=== PATIENT | female | born 1965 | race Caucasian/White ===

== ENCOUNTER 2023-07-17 07:33 | Outpatient (CLI) | payer OTHER, SELFPAY ==
--- NOTE | ~2023-07-17 | MM_ITS ---
EXAMINATION: MM screening lasha BI w ivis HISTORY: Screening mammogram TECHNIQUE: Craniocaudal and mediolateral oblique 3-D tomosynthesis images were obtained and synthetic 2-D images were generated. CAD analysis was submitted and interpreted. COMPARISON: No prior mammogram is available for comparison at this institution. BREAST PARENCHYMAL COMPOSITION: There are scattered areas of fibroglandular density. FINDINGS: There is no evidence of suspicious mass, calcification, or architectural distortion to sugg est malignancy in either breast. IMPRESSION: 1. No mammographic evidence of malignancy. 2. Recommend routine screening mammography in one year. BI-RADS Category 1: Negative Reviewed, dictated and finalized at location A.
== END 2023-07-17 07:34 | disposition home or self-care (01) ==
PROVIDERS: Visit Provider Obstetrics & Gynecology
DX: Z12.31 Encounter for screening mammogram for malignant neoplasm of breast (principal)
CPT/HCPCS: 77063; 77067

== ENCOUNTER 2023-07-19 00:59 | Day surgery (SDC) | payer OTHER, SELFPAY ==
[2023-07-07 10:23] VITALS: BMI 25.0
[2023-07-19 08:13] VITALS: BP 123/88; PULSE 73; RESP 16; TEMP 36.6; O2SAT 97
[2023-07-19] MEDS: LACTATED RINGERS 1,000 ML 150 ML IV CONT (08:15)
--- NOTE | 2023-07-19 09:03 | P.PNAN_ITS ---
Anes - Initial Pre Proc Eval Procedure: Operation Date: 07/19/23 09:30 Proposed Procedures p Screening Colonoscopy - Tim Green MD Date/Time: 07/19/23 09:03 Surgeon: Tim Green MD Pre Op Diagnosis: neoplasm screening Patient Data Age: 58 Gender: F Height: 1.63 m Weight: 66.3 kg Last Vital Signs Temp 98 F 07/19/23 08:13 Pulse 73 07/19/23 08:13 Resp 16 07/19/23 08:13 BP 123/88 07/19/23 08:13 Pulse Ox 97 07/19/23 08:13 O2 Del Method Room Air 07/19/23 08:13 Allergies Allergy/AdvReac Type Severity Reaction Status Date / Time No Known Allergies Allergy Unverified 07/19/23 08:12 Home Medications Medication Instructions Recorded Confirmed Type diphenhydramine 25 0.5 tablet PO HS 07/07/23 07/19/23 History mg-acetaminophen 500 mg tablet (Tylenol PM Extra Strength) melatonin 10 mg tablet 10 mg PO HS 07/07/23 07/19/23 History Patient hx anesthesia problems: none Family hx anesthesia problems: none Results Review: All pre-operative results and documents have been reviewed as part of the pre- operative evaluation. [facility] Social History Social History Smoking status: Never smoker Alcohol intake: current Drinks per week: 7 Alcohol use details: WINE Substance use: never Substance use type: does not use Living arrangements: with family Spiritual care concerns: No Anes - Eval Final PreProcedure Day of Procedure 07/19/23 09:03 Patient weight: normal Heart: regular rate and rhythm Lungs: clear to auscultation Airway: Mallampati scale class II Neurological: alert and oriented Last oral intake: >/= 8 hours ASA classification: I Emergent: no Anesthetic plan: proceed Anesthesia type and monitoring: general GIVS and standard monitoring Results Review: All pre-operative results and documents have been reviewed as part of the pre- operative evaluation. Informed Consent: The patient's anesthetic plan and its attendant risks and benefits were discussed with the patient/family/POA. Questions were solicited and answers provided to the satisfaction of the patient/family/POA.
--- NOTE | 2023-07-19 09:10 | P.HP_ITS ---
History of Present Illness History of Present Illness Consent: Risks, benefits, and alternatives have been discussed and questions answered. Patient agrees to proceed with procedure. Chief complaint: neoplasm screening Narrative: Sonal Kingston is a 58 year old female here for first screening colonoscopy Review of Systems Constitutional: Constitutional: Denies headache(s) and Denies weakness Eyes: Eyes: Denies blurry vision ENT: Reports Normal hearing present, Denies headache(s) and Denies neck pain Cardiovascular: Cardiovascular: Denies chest pain and Denies dyspnea Respiratory: Respiratory: Denies dyspnea Gastrointestinal: Gastrointestinal: Reports no additional gastrointestinal complaints Genitourinary: Genitourinary: Denies dysuria Musculoskeletal: Musculoskeletal: Denies neck pain Integumentary/Breasts: Skin/Breast: Denies dry skin Neurologic: Reports Normal hearing present, Denies headache(s) and Denies weakness Psychiatric: Psychiatric: Denies anxiety Endocrine: Endocrine: Denies change in body appearance Hematologic/Lymphatic: Hematologic/Lymphatic: Denies easy bleeding Allergic/Immunologic: Allergic/Immunologic: Denies urticaria [facility] Past Medical History Medical History (Updated 07/19/23 @ 09:11 by Tim Green MD) Colon cancer screening Social History Social History Smoking status: Never smoker Alcohol intake: current Drinks per week: 7 Alcohol use details: WINE Substance use: never Substance use type: does not use Living arrangements: with family Spiritual care concerns: No Meds Home Medications and Allergies Home Medications Medication Instructions Recorded Confirmed Type diphenhydramine 25 0.5 tablet PO HS 07/07/23 07/19/23 History mg-acetaminophen 500 mg tablet (Tylenol PM Extra Strength) melatonin 10 mg tablet 10 mg PO 07/07/23 07/19/23 History Allergies Allergy/AdvReac Type Severity Reaction Status Date / Time No Known Allergies Allergy Unverified 07/19/23 08:12 Vital Signs Vital Signs - 24 hr 07/19/23 08:13 Temperature 98 F Pulse Rate 73 Respiratory Rate 16 Blood Pressure 123/88 Pulse Oximetry 97 Oxygen Delivery Room Air Exam Const: General: comfortable and no acute distress HENMT: Face/Nose/Sinus: Normal nares present Eyes: General: appearance normal, both eyes and all related structures Neck: Neck: no JVD Resp: Auscultation: clear to auscultation bilaterally Cardio: Rate: regular rate Rhythm: regular rhythm GI: Inspection: non-distended GI Palp: Yes Soft to palpation Skin: General skin exam: normal color Neuro: General: gait normal Speech: normal speech Extrem: General: normal to inspection Psych: Mental Status: mental status grossly normal Assessment and Plan Assessment and plan (1) Colon cancer screening: Code(s): Z12.11 - Encounter for screening for malignant neoplasm of colon Status: Acute Assessment and Plan: colonoscopy
[2023-07-19 09:53] VITALS: BP 105/66; PULSE 75; RESP 23; O2SAT 99
[2023-07-19 10:03] VITALS: BP 104/62; PULSE 62; RESP 20; O2SAT 100
[2023-07-19 10:13] VITALS: BP 129/81; PULSE 60; RESP 21; O2SAT 100
== END 2023-07-19 10:16 | disposition home or self-care (01) ==
PROVIDERS: Visit Provider Internal Medicine Gastroenterology
PROC: 0DJD8ZZ Inspection of Lower Intestinal Tract, Via Natural or Artificial Opening Endoscopic (ICD-10-PCS; CPT 45378; principal; 2023-07-19 09:30)
DX: Z12.11 Encounter for screening for malignant neoplasm of colon (principal); K57.30 Diverticulosis of large intestine without perforation or abscess without bleeding; K64.8 Other hemorrhoids
CPT/HCPCS: 45378; J2001; J2704; J7120

== ENCOUNTER 2024-08-09 15:48 | Outpatient (CLI) | payer BC, SELFPAY ==
--- NOTE | ~2024-08-09 | MM_ITS ---
EXAMINATION: MM screening lasha BI w ivis HISTORY: Screening TECHNIQUE: Craniocaudal and mediolateral oblique 3-D tomosynthesis images were obtained and synthetic 2-D images were generated. CAD analysis was submitted and interpreted. COMPARISON: 07/17/2023 BREAST PARENCHYMAL COMPOSITION: Not dense: There are scattered areas of fibroglandular density. FINDINGS: There are no suspicious masses, calcifications or architectural distortion in either breast to suggest malignancy. No significant interval change. IMPRESSION: 1. No mammographic evidence of malignancy. 2. Recommend routine screening mammography in one year. BI-RADS Category 1: Negative Reviewed, dictated and finalized at location B.
== END 2024-08-09 15:49 | disposition home or self-care (01) ==
LOC: ANHIMG 15:51
PROVIDERS: Visit Provider Obstetrics & Gynecology
DX: Z12.31 Encounter for screening mammogram for malignant neoplasm of breast (principal)
CPT/HCPCS: 77063; 77067

== ENCOUNTER 2025-03-29 07:00 | Outpatient (NON) | payer BC, SELFPAY ==
--- NOTE | 2025-03-29 13:13 | S_PTH ---
PATIENT: Sonal Kingston LOC: ANHLAB #:[id number] AGE/SX: 59/F ROOM: RE03/29/[address]: Sean Anne MD : 1965 BED: DIS: 03/29/2025 SPEC #: [id number] RECD: 03/30/25 07:49 STATUS: KIMBERLYMelissa REQ #: [id number] SWAPNA: 03/29/25 13:[address]: Sean Anne DEPT: [facility] Surgical RECD BY: Jodie Kumar Tissues: A - Cyst B - Cyst Procedures: Hematoxylin and Eosin Stain Gross and Microscopic Level 4 Comments: @ Originally on account #[id number] Req #[id number]
--- OUTSIDE RECORDS SUMMARY | 2026-02-12 15:34 | XMS_ITS | Clinical Summary ---
Author Organization [facility] Address [address] [place] [address] Phone Care Team Providers Care Sort Line Worker Name Role Phone Samuel Barker MD Primary Care Provide r Allergies No known active allergies Medications melatonin 10 mg tablet Take 1 tablet (10 mg total) by mouth daily Active cholecalcifero l 25 mcg (1,000 unit) tablet Take 1 tablet (1,000 Units total) by mouth daily Active acetaminophen (TYLENOL) 325 mg tablet Take 2 tablets (650 mg total) by mouth every 6 (six) hours as needed for pain 1/2 TAB nightly 01/16/20 26 Discontinued Active Problems Problem Noted Date Diagnosed Date Mixed hyperlipidemia 01/15/2026 Assessment & Plan (01/15/2026 4:02 PM CDT): MIldly elevated LDL cholesterol HDL very elevated Strong family hx of CVD, father had CABG in 50's Trend Lipid panel annually Low threshold to start low-dose statin to modify cardiovascular risk Palpitations 01/17/2024 Assessment & Plan (01/17/2024 7:53 AM CDT): Two episodes of very symptomatic palpitations in fall of 2022, no significant recurrence. Episodes occurred at rest, no exertional component. No other associated symptoms. Discussed ongoing monitoring for symptom recurrence, monitoring HR on Apple Watch. She is comfortable deferring Holter/event monitor for now since symptoms have stopped. Discussed differential including arrhythmia, PAC/PVCs, anxiety, etc. Primary insomnia 01/17/2024 Assessment & Plan (04/03/2025 1:08 PM CDT): Stable w/ melatonin and Tylenol PM. Assessment & Plan (01/17/2024 7:53 AM CDT): Stable w/ melatonin and Tylenol PM. Encounter for preventive health examination 12/30 Assessment & Plan (01/15/2026 4:02 PM CDT): Discussed a healthy life style consisting of a diet which include 4-5 servings of fruits and vegetables a day, regular exercise consisting of at least 120-150 minutes of moderate intensity activity. Alcohol, if ingested, should be kept to no more than four servings a week. Discussed age-appropriate healthcare maintenance per USPTF guidelines Working as a health and physical education teacher To take meds Enjoys traveling in her free time Does drink wine, no other drug use or tobacco use Strong family history of cardiovascular disease Assessment & Plan (04/03/2025 1:08 PM CDT): General - HbA1c: 5.3% 12/2023 - Lipid panel: LDL 134 12/2023 - ASCVD score: Low risk - DEXA scan: Discuss at 66 Cancer - Colonoscopy: UTD 07/2023, repeat 07/2033 - Mammogram: UTD 08/2024, records requested - Pap: UTD 04/2023, repeat per Idea Worker Immunizations - Influenza: Recommended - Td/Tdap: UTD 11/2020, repeat 11/2030 - PCV20: Discuss at 65 - Shingles: Recommended - COVID: Recommended Orders: Vitamin D 25 hydroxy; Future Thyroid Function Piatt; Future Lipid panel; Future Comprehensive metabolic panel; Future CBC with auto differential; Future Hepatitis C antibody Blood; Future Hemoglobin A1c; Future Assessment & Plan (01/14/2024 12:30 PM CDT): General - HbA1c: Ordered - Lipid panel: Ordered - ASCVD score: Pending - DEXA scan: Discuss at 66 Cancer - Colonoscopy: UTD 07/2023, records requested - Mammogram: UTD 07/2023, records requested - Pap: UTD 04/2023, repeat per Idea Worker Immunizations - Influenza: Recommended - Td/Tdap: UTD 11/2020, repeat 11/2030 - PCV20: Discuss at 66 - Shingles: Recommended - COVID: Recommended Encounters Date Type Department Care Team Description 01/15/2026 2:45 PM CDT Office Visit [facility] Primary [facility] at [place] [id number] [place] [phone] Samuel Barker MD Encounter for preventive health examination (Primary Dx); Mixed hyperlipidemia from Last 3 Months Immunizations Immunization Administration Dates Next Due Influenza, Unspecified 01/14/2024(Deferred: [place] ent Refused) Tdap 11/05/2020 Family History Medical History Relation Name Comments Kidney failure Brother Alcohol abuse Father Father Depression Father Father Heart attack Father Father Bypass Hyperlipidemia Father Father Hypertension Father Father Parkinsonism Father Father Hypertension Mother Mother Stroke Sister Relation Name Status Comments Brother Father Father Mother Mother Sister Social History Tobacco Use Types Packs/Day Years Used Date Smoking Tobacco: Never Smokeless Tobacco: Never Tobacco Cessation:Counseling Given: Not Answered PHQ-2 Answer Date Recorded PHQ-2 Total Score (If total score is 3 or more points, staff should administer the PHQ-9) 0 01/15/2026 Comments No Sex and Gender Information Value Date Recorded Sex Assigned at Not on file Legal Sex Female 9:33 AM CDT Gender Identity Female 07/05/2025 8:50 PM CDT Sexual Orientation Straight 07/05/2025 8: 50 PM CDT Obstetrics History Para Term AB IAB SAB Ectopic Multiple Livin g Live Births 2 2 Date Outcome GA Total Labor Labor/2nd/3rd Weight Sex Type Anes PTL Tiffanie A1 A5 Name Clin Last Filed Vital Signs Vital Sign Reading Time Taken Comments Blood Pressure 120/74 01/15/2026 2:35 PM CDT Pulse 82 01/15/2026 2:35 PM CDT Temperature - - Respiratory Rate 16 01/14/2024 11:54 AM CDT Oxygen Saturation 95% 01/15/2026 2:35 PM CDT Inhaled Oxygen Concentration - - Weight 65.1 kg (143 lb 9.6 oz) 01/15/2026 2:35 P M CDT Height 162.6 cm (5' 4) 01/15/2026 2:35 PM CDT Body Mass Index 24.65 01/15/2026 2:35 PM CDT Plan of Treatment Health Maintenance Due Date Last Done Comments Zoster Vaccine (1 of 2) 2016 Influenza Vaccine (Season Ended) 2026 Breast Cancer Screening-Mammogram 07/09/2026 07/09/2025, 08/01/2024, 07/17/2023 Covid-19 Vaccine ( season) 2027 11/07/2022, 09/11/2021, 01/05/2021, Additional history exists Postponed from 07/02/2025 (Supply/Drug Shortage) Depression Screening 01/15/2027 01/15/2026, 04/03/2025, 01/14/2024 Regular Well Visit/Exam 18-64 01/15/2027 01/15/2026, 04/03/2025 Cervical Cancer Screening 04/21/2028 04/21/2023 DTaP/Tdap/Td Vaccine (2 - Td or Tdap) 11/05/2030 11/05/2020 Colon Cancer Screening-Colonoscopy 07/02/2033 07/02/2023 Hepatitis C Screening Completed 04/11/2025 Hepatitis B Screening Discontinued Pneumococcal vaccine <65 Aged Out No longer eligible based on patient's age to complete this topic Procedures Procedure Name Priority Date/Time Associated Diagnosis Comments SCREENING MAMMOGRAM BILATERAL W SUKH Schedule Routine, Read Routine (OP Routine) 07/09/2025 5:01 PM CDT Screening mammogram, encounter for HEPATITIS C ANTIBODY Routine 04/11/2025 8:03 AM CDT Encounter for preventive health examination Encounter for HCV screening test for low risk patient HM PAP SMEAR WITH HPV Routine 04/21/2023 from Last 3 Months or Most Recently Relevant to Health Maintenance Results * (ABNORMAL) Screening Mammogram Bilateral W Sukh (07/09/2025 5:01 PM CDT) Anatomical Region Laterality Modality Breast Bilateral Mammography Impressions 07/11/2025 10:42 AM CDT Left 1) Asymmetry: Left breast asymmetry in the upper region. Assessment: 0 - Incomplete. Diagnostic mammogram with possible ultrasound is recommended. Right No evidence of malignancy. OVERALL BI-RADS FINAL ASSESSMENT: 0 - Incomplete: Needs Additional Imaging Evaluation RECOMMENDATIONS: Recommend left breast diagnostic mammogram with possible ultrasound. Narrative 07/11/2025 10:42 AM CDT EXAMINATION: Screening Mammogram Bilateral W Sukh: 07/09/2025 COMPARISON: TECHNIQUE: Mammography was performed with 2D and digital breast tomosynthesis (DBT) images. CAD was utilized. BREAST PARENCHYMAL COMPOSITION: There are scattered areas of fibroglandular density. FINDINGS: Left 1) Asymmetry: There is an asymmetry seen in the upper region of the left breast. This finding needs additional imaging evaluation. Right There is no suspicious mass, calcification, or architectural distortion. us Self Screening Mammogram IMG MAMMO PROCEDURES Fi nal Result * Hepatitis C antibody Blood (04/11/2025 8:03 AM CDT) Hep C Ab NON-REACTI VE NON-REACT CELESTE [facility] Comment: HCV antibody was non-reactive. There is no laboratory evidence of HCV infection. In most cases, no further action is required. However, if recent HCV exposure is suspected, a test for HCV RNA (test code 57307) is suggested. For additional information please refer to http://education.[employer].VeriShow/faq/SLQ68j2 (This link is being provided for informational/ educational purposes only.) Blood 04/11/2025 8:03 AM CDT 04/11/2025 8:04 AM CDT Narrative [facility] - 04/12/2025 1:43 AM CDT FASTING:YES FASTING: YES us Julia Newsome MD LAB MICROBIOLOGY - GEN ERAL ORDERABLES Final Result [facility] [address] [phone] * HM PAP SMEAR WITH HPV (04/21/2023) Scribed Pap Smear w/HPV Normal us Generic External Data Provider HEALTH MAINTENANC E Final Result from Last 3 Months or Most Recently Relevant to Health Maintenance Insurance [employer] Care Teams Sort Line Worker Relationship Specialty Start Date End Date Samuel Barker MD [address] [place] [id number] [place] [address] PCP - General Internal Medicine 01/15/26
== END 2025-03-29 07:01 | disposition home or self-care (01) ==
PROVIDERS: Visit Provider Plastic Surgery
DX: L72.11 Pilar cyst (principal)
CPT/HCPCS: 88305